=== PATIENT | male | born 1950 | race Hispanic/Latino ===

== ENCOUNTER 2018-03-26 08:21 | Emergency (ER) | payer OTHER ==
[2018-03-26 09:55] LABS: RAPID GROUP A STREP NEGATIVE (NEGATIVE)
== END 2018-03-26 10:38 | disposition home or self-care (01) ==
LOC: EDH 08:21
DX: J06.9 Acute upper respiratory infection, unspecified (principal); E11.9 Type 2 diabetes mellitus without complications; E78.5 Hyperlipidemia, unspecified; E07.9 Disorder of thyroid, unspecified; Z88.6 Allergy status to analgesic agent; Z91.018 Allergy to other foods
CPT/HCPCS: 71045; 87804; 87880